=== PATIENT | male | born 1985 | race African-American/Black ===

== ENCOUNTER 2020-01-12 03:17 | Emergency (ER) | payer SELFPAY ==
[~2020-01-12] VITALS: Ht 170.2 cm; Wt 89.4 kg
[2020-01-12 05:21] VITALS: BP 162/98
== END 2020-01-12 05:22 | disposition home or self-care (01) ==
LOC: EDSEX 03:21 → ER 03:21
DX: J06.9 Acute upper respiratory infection, unspecified (principal); E11.9 Type 2 diabetes mellitus without complications